=== PATIENT | female | born 1990 | race Caucasian/White ===

== ENCOUNTER 2020-03-19 02:21 | Emergency (ER) | payer SELFPAY ==
[~2020-03-19] VITALS: Ht 172.7 cm; Wt 84.1 kg
--- NOTE | 2020-03-19 02:29 | PHYS DOC ---
General Adult EDM: Chief Complaint: SHORTNESS OF BREATH HPI: HPI: Patient is a 29 year old female who arrives via EMS from [facility] with report of wheezing and shortness of breath. 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 Patient was given a DuoNeb in route and states that she feels 100% better. Currently she denies any shortness of breath and also denies chest pain or fever. [] Review of Systems: Review of Systems: Constitutional: Denies fever or chills. [] Respiratory: Reports shortness of breath. [] Cardiovascular: Denies chest pain or edema. [] Integument: Denies rash. [] Neurologic: Denies headache, focal weakness or sensory changes. [] Heart Score: Risk Factors: Risk Factors: DM, Current or recent (<one month) smoker, HTN, HLP, family history of CAD, obesity. Risk Scores: Score 0 - 3: 2.5% MACE over next 6 weeks - Discharge Home Score 4 - 6: 20.3% MACE over next 6 weeks - Admit for Clinical Observation Score 7 - 10: 72.7% MACE over next 6 weeks - Early Invasive Strategies Physical Exam: PE: Constitutional: Well developed, well nourished, no acute distress, non-toxic appearance. [] Cardiovascular: Regular rate and rhythm [] Lungs & Thorax: Bilateral breath sounds clear to auscultation [] Skin: Warm, dry, no erythema, no rash. [] Extremities: No tenderness, no cyanosis, no clubbing, ROM intact, no edema. [] EKG: EKG: [] Radiology/Procedures: Radiology/Procedures: [] Course & Med Decision Making: Course & Med Decision Making Pertinent Labs and Imaging studies reviewed. (See chart for details) [] Dragon Disclaimer: Fonix Disclaimer: This electronic medical record was generated, in whole or in part, using a voice recognition dictation system. Departure Departure Impression: Primary Impression: Asthma Qualified Codes: J45.909 - Unspecified asthma, uncomplicated Disposition: 01 HOME, SELF-CARE Condition: STABLE Patient Instructions: Asthma, Adult Scripts Albuterol Sulfate (PROAIR HFA INHALER) 8.5 Gm Hfa.aer.ad 2 PUFF IH PRN Q4-6HRS PRN for wheezing, #1 INHALER 0 Refills Prov: MYRANDA YU Jr. DO 03/19/20 Justicifation of Admission Dx: Justifications for Admission: Justification of Admission Dx: Comment: (Not applicable) MYRANDA YU Jr. DO Mar 19, 2020 02:29
[2020-03-19] MEDS ORDERED: ALBU2.5V8 IH (02:32)
[2020-03-19] MEDS ORDERED: ALBUTEROL SULFATE 8GM INHALER. INH PRN (03:00)
[2020-03-19 04:00] VITALS: BP 119/69
== END 2020-03-19 04:08 | disposition home or self-care (01) ==
LOC: ER 02:21
DX: J45.909 Unspecified asthma, uncomplicated (principal)
CPT/HCPCS: 99284